=== PATIENT | male | born 1935 | race Caucasian/White ===

== ENCOUNTER 2023-03-10 12:32 | Outpatient (CLI) | payer MEDICARE, BC | END 2023-03-10 12:33 | disposition home or self-care (01) | LOC: CSHULT 12:32 | PROVIDERS: ATTEND Internal Medicine Cardiovascular Disease | DX: I48.0 Paroxysmal atrial fibrillation (principal); I49.5 Sick sinus syndrome; I48.3 Typical atrial flutter; I51.7 Cardiomegaly; Z95.0 Presence of cardiac pacemaker | CPT/HCPCS: 93306 ==